=== PATIENT | male | born 1980 | race Caucasian/White ===

== ENCOUNTER 2016-12-10 11:09 | Outpatient (CLI) | payer OTHER ==
[2016-12-10 11:52] LABS: ALT (SGPT) 52 U/L (8-55); AST (SGOT) 33 U/L (5-34); Albumin 4.1 g/dL (3.5-5.0); Alkaline Phosphatase 83 U/L (40-150); Anion Gap 15 mmol/L (10-20); BUN (Urea Nitrogen) 15 mg/dL (8.9-20.6); Bilirubin, Direct 0.3 mg/dL (0.1-0.3); Bilirubin, Total 0.6 mg/dL (0.2-1.2); Calc. Creatinine Clearance 0 mL/min (70-130); Calcium 9.1 mg/dL (7.8-10.44); Carbon Dioxide 23 mmol/L (22-29); Cardiac Risk 4.1 (Less than 4.5); Chloride 106 mmol/L (98-107); Cholesterol 122 mg/dl (< 200 Desired); Estimated GFR-MDRD 72; Glucose 148 mg/dL (70-105); HDL Cholesterol 30 mg/dL (>60 Neg Risk); LDL Cholesterol, Calculated 73 mg/dL; Potassium 3.9 mmol/L (3.5-5.1); Protein, Total 7.7 g/dL (6.0-8.3); Sodium 140 mmol/L (136-145); Triglycerides 96 mg/dL (Less than 150)
[2016-12-10 12:31] LABS: Hemoglobin A1c 7.8 % (4.0-6.0)
== END 2016-12-10 11:10 | disposition home or self-care (01) ==
LOC: MADLABBHPM 11:09
PROVIDERS: ATTEND Family Medicine
DX: E11.9 Type 2 diabetes mellitus without complications (principal)
CPT/HCPCS: 36415; 80048; 80061; 80076; 83036

== ENCOUNTER 2017-03-18 08:30 | Outpatient (CLI) | payer BC, OTHER ==
[2017-03-18 10:06] LABS: Hemoglobin A1c 8.5 % (4.0-6.0)
--- NOTE | 2017-03-18 10:41 | RAD ---
SINGLE VIEW OF THE ABDOMEN: HISTORY: Calculus of the kidney. COMPARISON: 12/23/2014 FINDINGS: Single view of the abdomen shows a nonspecific, nonobstructed bowel gas pattern. There is a small, 3 mm calcification projecting over the left renal shadow. No calcification is seen along the course of the ureters. IMPRESSION: Left nephrolithiasis. POS: [facility]
[2017-03-18 11:07] LABS: ALT (SGPT) 43 U/L (8-55); AST (SGOT) 26 U/L (5-34); Alkaline Phosphatase 84 U/L (40-150); Anion Gap 13 mmol/L (10-20); BUN (Urea Nitrogen) 11 mg/dL (8.9-20.6); Bilirubin, Direct 0.2 mg/dL (0.1-0.3); Bilirubin, Total 0.5 mg/dL (0.2-1.2); Calc. Creatinine Clearance 0 mL/min (70-130); Carbon Dioxide 26 mmol/L (22-29); Cardiac Risk 4.1 (Less than 4.5); Chloride 105 mmol/L (98-107); Cholesterol 111 mg/dl (< 200 Desired); Estimated GFR-MDRD 89; Glucose 156 mg/dL (70-105); HDL Cholesterol 27 mg/dL (>60 Neg Risk); LDL Cholesterol, Calculated 68 mg/dL; Protein, Total 7.5 g/dL (6.0-8.3); Sodium 140 mmol/L (136-145); Triglycerides 80 mg/dL (Less than 150)
[2017-03-18 11:51] LABS: Bacteria/HPF 1+ HPF (None Seen); Bilirubin Negative (Negative); Blood, Urine Negative (Negative); Clarity Cloudy (Clear); Crystals/HPF 3+ AMORPH URATES HPF (Negative); Glucose, Urine (Dipstick) Negative (Negative); Leukocyte Negative (Negative); Nitrite Negative (Negative); Protein, Urine (Dipstick) Negative (Neg-Trace); RBC/HPF 0-3 HPF (0-3); Specific Gravity, Urine 1.025 (1.005-1.030); Squamous Epithelial 0-3 HPF (0-3); Urobilinogen 0.2 mg/dL (0.2-1.0)
== END 2017-03-18 08:31 | disposition home or self-care (01) ==
LOC: MADLABBHPM 08:30
PROVIDERS: ATTEND Urology
DX: N20.0 Calculus of kidney (principal); E11.9 Type 2 diabetes mellitus without complications
CPT/HCPCS: 36415; 74000; 80048; 80061; 80076; 81001; 83036; 87086

== ENCOUNTER 2017-03-21 12:26 | Outpatient (CLI) | payer BC ==
--- NOTE | 2017-03-21 14:26 | ULT ---
RENAL ULTRASOUND: HISTORY: Left nephrolithiasis. COMPARISON: 12/23/2014 and [facility] from 03/18/2017. TECHNIQUE: Multiplanar navarro-scale and color Doppler images were obtained in a renal ultrasound. FINDINGS: There is a tiny anechoic focus in the right kidney, measuring 9 mm in size, which represents a cyst. No shadowing calculi are seen in the right kidney. There are echogenic shadowing foci in the left kidney, measuring up to 7 mm in size, which likely represent nonobstructing calcifications. Both k idneys demonstrate normal cortical echogenicity, and no hydronephrosis is seen. The kidneys measure 10 and 10.4 cm in length on the right and left, respectively. Limited visualization of the urinary bladder is unremarkable. IMPRESSION: 1. Right renal cyst. 2. Nonobstructing left renal calcification. POS: [facility]
== END 2017-03-21 12:27 | disposition home or self-care (01) ==
LOC: MADULT 12:26
PROVIDERS: ATTEND Urology
DX: N20.0 Calculus of kidney (principal); N28.1 Cyst of kidney, acquired
CPT/HCPCS: 76770